=== PATIENT | male | born 1945 | race Caucasian/White ===

== ENCOUNTER 2018-12-19 09:39 | Observation (INO) | payer MEDICARE ==
[2018-12-19] MEDS ORDERED: IPRATROPIUM-ALBUTEROL 3 ML NEB INHALATION STA ×2 (10:09→11:13)
[2018-12-19] MEDS ORDERED: methylPREDNISolone SOD SUCCI 125 MG/2 ML VIAL IV STA (10:10)
--- NOTE | 2018-12-19 10:51 | XR ---
EXAMINATION TYPE: XR chest 2V DATE OF EXAM: 12/19/2018 HISTORY: Pain. REFERENCE: NONE. FINDINGS: There has been a previous left shoulder arthroplasty as well as rotator cuff repair on the right. Lung volumes are prominent. The lungs are clear. Pleural spaces are clear. Heart size is within yoana l limits. IMPRESSION: 1. NO ACUTE INTRATHORACIC ABNORMALITY. 2. POSTOPERATIVE CHANGE.
[2018-12-19 10:54] LABS: Basophils % (A) 1 %; Eosinophils # (A) 0.1 k/uL (0-0.7); Eosinophils % (A) 1 %; HCT 41.5 % (39.0-53.0); HGB 13.3 gm/dL (13.0-17.5); Lymphocytes # (A) 2.3 k/uL (1.0-4.8); Lymphocytes % (A) 32 %; MCH 28.4 pg (25.0-35.0); MCV 88.8 fL (80.0-100.0); Mean Platelet Volume 7.6; Monocytes # (A) 0.3 k/uL (0-1.0); Monocytes % (A) 5 %; Neutrophils # (A) 4.3 k/uL (1.3-7.7); Neutrophils % (A) 60 %; Platelet Count 182 k/uL (150-450); RBC 4.68 m/uL (4.30-5.90); RDW 13.9 % (11.5-15.5); WBC 7.2 k/uL (3.8-10.6)
[2018-12-19 11:11] LABS: ALT 55 U/L (21-72); AST 55 U/L (17-59); Albumin 3.8 g/dL (3.5-5.0); Alkaline Phosphatase 117 U/L (38-126); Anion Gap 8 mmol/L; Blood Urea Nitrogen 17 mg/dL (9-20); Calcium 9.4 mg/dL (8.4-10.2); Carbon Dioxide 25 mmol/L (22-30); Chloride 104 mmol/L (98-107); Glucose 253 mg/dL (74-99); Potassium 4.2 mmol/L (3.5-5.1); Sodium 137 mmol/L (137-145); Total Bilirubin 0.6 mg/dL (0.2-1.3); Total Protein 6.5 g/dL (6.3-8.2)
[2018-12-19] MEDS ORDERED: AZITHROMYCIN 500 MG in SODIUM CHLORIDE 0.9% 250 ML IVPB STA (11:13)
--- NOTE | 2018-12-19 11:40 | ED ---
URI HPI - General Source: patient Mode of arrival: ambulatory Limitations: no limitations <Celina Alvarado - Last Filed: 12/19/18 12:40> <Kyler Chua - Last Filed: 12/19/18 13:26> - General Chief Complaint: Upper Respiratory Infection Stated Complaint: cough, SOB Time Seen by Provider: 12/19/18 09:51 - History of Present Illness Initial Comments: 73-year-old male presenting today for chief complaint of "upper respiratory infection that turned into bronchitis" pt states that he had 2 years ago identical symptoms, he was admitted to the hospital for breathing treatments. Pt states for the past 2-3 weeks he has had cough with some sputum production, he states he feels like his chest is congested and has some shortness of breath. He denies chest pain. He states that on Thursday he presented to [facility] where he had a "full heart work up" he states that this is not what he wanted he states it is not chest pain he states that this is an infection. Pt denies hemoptysis, leg swelling, epigastric or abdominal pain, upper back pain, pleuritic chest pain, recent surgery, hx of DVT, hx of cancer. Upon arrival pt does not appear in distress however audible expiratory wheeze. (Celina Alvarado) - Related Data Allergies Allergy/AdvReac Type Severity Reaction Status Date / Time Iodinated Contrast- Oral and Allergy Unknown Verified 12/19/18 09:49 IV Dye Review of Systems ROS Other: All systems not noted in ROS Statement are negative. <Celina Alvarado - Last Filed: 12/19/18 12:40> ROS Other: All systems not noted in ROS Statement are negative. <Kyler Chua - Last Filed: 12/19/18 13:26> ROS Statement: Those systems with pertinent positive or pertinent negative responses have been documented in the HPI. Past Medical History Past Medical History: Diabetes Mellitus, Hyperlipidemia, Myocardial Infarction ([place]) History of Any Multi-Drug Resistant Organisms: None Reported Past Surgical History: Cholecystectomy, Heart Catheterization With Stent Past Psychological History: No Psychological Hx Reported Smoking Status: Former smoker Past Alcohol Use History: None Reported Past Drug Use History: None Reported <Celina Alvarado - Last Filed: 12/19/18 12:40> General Exam Limitations: no limitations <Celina Alvarado - Last Filed: 12/19/18 12:40> - General Exam Comments Initial Comments: General: The patient is awake and alert, in no distress, and does not appear acutely ill. Eye: +3 mm pupils are equal, round and reactive to light, extra-ocular movements are intact. No nystagmus. There is normal conjunctiva bilaterally. No signs of icterus. No photophobia Ears, nose, mouth and throat: There are moist mucous membranes and no oral lesions. Oropharynx was not erythematous there is no tonsillar enlargement exu dates or lesions. Uvula midline. Tympanic membranes are not erythematous or is no effusions bulging or retraction. No tenderness to palpation of the mastoid. No anterior cervical lymphadenopathy. Rhinorrhea, clear and bilateral nares. No tripoding, no drooling. Neck: The neck is supple, there is no tenderness or JVD. No nuchal rigidity negative Brudzinski and Kernig Cardiovascular: There is a regular rate and rhythm. No murmur, rub or gallop is appreciated. Respiratory: Respirations are non-labored, breath sounds are equal. No stridor, rales. Significant expiratory wheeze in all rojo, rhonchi. No retractions or abdominal breathing. Gastrointestinal: Soft, non-distended, non-tender abdomen without masses or organomegaly noted. There is no rebound or guarding present. Bowel sounds are unremarkable. Musculoskeletal: Normal ROM, no tenderness. Strength 5/5. Sensation intact. Radial pulses equal bilaterally 2+. Neurological: A&O x 3. CN II-XII intact, There are no obvious motor or sensory deficits. Coordination appears grossly intact. Speech appears normal, no muffling. Skin: Skin is warm and dry and no rashes or lesions are noted. No extremity edema Psychiatric: Cooperative (Celina Alvarado) Course Vital Signs 12/19/18 12/19/18 12/19/18 09:44 10:03 10:22 Temperature 98.5 F Pulse Rate 70 72 Respiratory 18 18 Rate Blood Pressure 143/75 O2 Sat by Pulse 95 Oximetry 12/19/18 12/19/18 12/19/18 10:30 12:06 12:15 Temperature Pulse Rate 76 70 76 Respiratory Rate Blood Pressure O2 Sat by Pulse Oximetry Medical Decision Making - Lab Data Result diagrams: 12/19/18 10:32 12/19/18 10:32 <Celina Alvarado - Last Filed: 12/19/18 12:40> - Lab Data Result diagrams: 12/19/18 10:32 12/19/18 10:32 <Kyler Chua - Last Filed: 12/19/18 13:26> - Medical Decision Making 73-year-old male with history of "chronic bronchitis" previous every day smoker presenting today for chief complaint of cough, shortness of breath 3 weeks. Patient states he has had upper respiratory symptoms he feels as though it settled in his chest. He states he is at times short of breath. Patient has significant expiratory wheeze on examination as well as audible rhonchi. No rales are audible consolidations. Chest x-ray revealed no acute abnormality. No effusion. Patient is no lower extremity swelling. Patient does a chest pain. He refuses cardiac w/u stating he had one two days prior and was frustrated because he doesnt have chest pain "like that". Upon arrival pt is 95% on RA. Pt was given 2 duoneb treatments he had some relief after the second but lungs do no appear at all improved from initial exam, significant expiratory wheezes and rhonchi. At this time I feel pt should be admitted for repetitive treatments, IV steroids. Pt was given a dose of azithromycin in ER he does deny fever, no leukocytosis. I discussed case with attending provider Dr. Chua. Who is agreeable with admission. He spoke with admitting provider Dr. Herman who will treat patient further. (Celina Alvarado) Patient reevaluated and reexamined by myself, Dr. Chua. Patient resting comfortably in bed. Lung sounds with continued significant wheezing. Patient and family updated on results and plan. Case was discussed in detail with Dr. Herman covering for hospital call, who will admit. I do agree with PA Findings. This includes diagnostic interpretation treatment plan. (Kyler Chua) - Lab Data Lab Results 12/19/18 12/19/18 12/19/18 Range/Units 10:32 10:32 10:32 WBC 7.2 (3.8-10.6) k/uL RBC 4.68 (4.30-5.90) m/uL Hgb 13.3 (13.0-17.5) gm/dL Hct 41.5 (39.0-53.0) % MCV 88.8 (80.0-100.0) fL MCH 28.4 (25.0-35.0) pg MCHC 32.0 (31.0-37.0) g/dL RDW 13.9 (11.5-15.5) % Plt Count 182 (150-450) k/uL Neutrophils % 60 % Lymphocytes % 32 % Monocytes % 5 % Eosinophils % 1 % Basophils % 1 % Neutrophils # 4.3 (1.3-7.7) k/uL Lymphocytes # 2.3 (1.0-4.8) k/uL Monocytes # 0.3 (0-1.0) k/uL Eosinophils # 0.1 (0-0.7) k/uL Basophils # 0.0 (0-0.2) k/uL Sodium 137 (137-145) mmol/L Potassium 4.2 (3.5-5.1) mmol/L Chloride 104 (98-107) mmol/L Carbon Dioxide 25 (22-30) mmol/L Anion Gap 8 mmol/L BUN 17 (9-20) mg/dL Creatinine 0.83 (0.66-1.25) mg/dL Est GFR (CKD-EPI)AfAm >90 (>60 ml/min/1.73 sqM) Est GFR (CKD-EPI)NonAf 87 (>60 ml/min/1.73 sqM) Glucose 253 H (74-99) mg/dL Calcium 9.4 (8.4-10.2) mg/dL Total Bilirubin 0.6 (0.2-1.3) mg/dL AST 55 (17-59) U/L ALT 55 (21-72) U/L Alkaline Phosphatase 117 (38-126) U/L Troponin I <0.012 (0.000-0.034) ng/mL NT-Pro-B Natriuret Pep pg/mL Total Protein 6.5 (6.3-8.2) g/dL Albumin 3.8 (3.5-5.0) g/dL 12/19/18 Range/Units 10:32 WBC (3.8-10.6) k/uL RBC (4.30-5.90) m/uL Hgb (13.0-17.5) gm/dL Hct (39.0-53.0) % MCV (80.0-100.0) fL MCH (25.0-35.0) pg MCHC (31.0-37.0) g/dL RDW (11.5-15.5) % Plt Count (150-450) k/uL Neutrophils % % Lymphocytes % % Monocytes % % Eosinophils % % Basophils % % Neutrophils # (1.3-7.7) k/uL Lymphocytes # (1.0-4.8) k/uL Monocytes # (0-1.0) k/uL Eosinophils # (0-0.7) k/uL Basophils # (0-0.2) k/uL Sodium (137-145) mmol/L Potassium (3.5-5.1) mmol/L Chloride (98-107) mmol/L Carbon Dioxide (22-30) mmol/L Anion Gap mmol/L BUN (9-20) mg/dL Creatinine (0.66-1.25) mg/dL Est GFR (CKD-EPI)AfAm (>60 ml/min/1.73 sqM) Est GFR (CKD-EPI)NonAf (>60 ml/min/1.73 sqM) Glucose (74-99) mg/dL Calcium (8.4-10.2) mg/dL Total Bilirubin (0.2-1.3) mg/dL AST (17-59) U/L ALT (21-72) U/L Alkaline Phosphatase (38-126) U/L Troponin I (0.000-0.034) ng/mL NT-Pro-B Natriuret Pep 87 pg/mL Total Protein (6.3-8.2) g/dL Albumin (3.5-5.0) g/dL Disposition Is patient prescribed a controlled substance at d/c from ED?: No Time of Disposition: 12:46 Decision to Admit Reason: Admit from EC Decision Date: 12/19/18 Decision Time: 12:46 <Celina Alvarado - Last Filed: 12/19/18 12:40> <Kyler Chua - Last Filed: 12/19/18 13:26> Clinical Impression: COPD exacerbation, Shortness of breath, Cough Disposition: ADMITTED IP TO THIS HOSP Condition: Stable Referrals: Cichowlas,Gary, DO [Primary Care Provider] - 1-2 days
[2018-12-19] MEDS ORDERED: IPRATROPIUM-ALBUTEROL 3 ML NEB INHALATION PRN (12:47)
[2018-12-19 14:55] VITALS: BMI 31.1
[2018-12-19] MEDS: IPRATROPIUM-ALBUTEROL 3 ML NEB INHALATION SCH ×3 (16:52→20:59)
[2018-12-19 16:57] LABS: Glucose,Whole Blood 310 mg/dL (75-99)
[2018-12-19] MEDS: INSULIN ASPART (NovoLOG) 100 UNIT/ML VIAL SQ SCH ×2 (16:58→21:19)
--- NOTE | 2018-12-19 17:03 | P.HPIM ---
History of Present Illness 73-year-old pleasant gentleman with history of smoking quit 4 years ago came in with comments of shortness of breath was wheezing was coughing all night. Patient was dealing with upper respiratory infection for about a month. Patient denied any fever chills patient doesn't have pneumonia on chest x-ray patient appears to have bronchitis rhonchus breath sounds. Patient denied any hemoptysis dysuria. Patient is unable leukocytosis patient has is diabetic with highly elevated blood sugars is on his dose of insulin. Patient doesn't use any oxygen at home patient is comparing of cough unable to bring up anything Review of Systems REVIEW OF SYSTEMS: CONSTITUTIONAL: No fever, no malaise, no fatigue. HEENT: No recent visual problems or hearing problems. Denied any sore throat. CARDIOVASCULAR: No chest pain, orthopnea, PND, no palpitations, no syncope. PULMONARY: no hemoptysis. GASTROINTESTINAL: No diarrhea, no nausea, no vomiting, no abdominal pain. NEUROLOGICAL: No headaches, no weakness, no numbness. HEMATOLOGICAL: Denies any bleeding or petechiae. GENITOURINARY: Denies any burning micturition, frequency, or urgency. MUSCULOSKELETAL/RHEUMATOLOGICAL: Denies any joint pain, swelling, or any muscle pain. ENDOCRINE: Denies any polyuria or polydipsia. The rest of the 14-point review of systems is negative. Past Medical History Past Medical History: Diabetes Mellitus, Hyperlipidemia, Myocardial Infarction ([place]) Last Myocardial Infarction Date:: 2011 History of Any Multi-Drug Resistant Organisms: None Reported Past Surgical History: Back Surgery, Cholecystectomy, Heart Catheterization With Stent, Joint Replacement Additional Past Surgical History / Comment(s): AAA with sleeve, TLS, Past Anesthesia/Blood Transfusion Reactions: No Reported Reaction Date of Last Stent Placement:: 2011 Past Psychological History: No Psychological Hx Reported Smoking Status: Former smoker Past Alcohol Use History: None Reported Past Drug Use History: None Reported - Past Family History Mother Family Medical History: Diabetes Mellitus Father Family Medical History: Coronary Artery Disease (CAD) Medications and Allergies Home Medications Medication Instructions Recorded Confirmed Type Aspirin EC [Ecotrin Low Dose] 81 mg PO DAILY 12/19/18 12/19/18 History Escitalopram Oxalate [Lexapro] 10 mg PO DAILY 12/19/18 12/19/18 History Ezetimibe [Zetia] 10 mg PO HS 12/19/18 12/19/18 History Fluticasone Nasal [place] [Flonase 1 spray EA NOSTRIL DAILY 12/19/18 12/19/18 History Nasal [place]] INSULIN LISPRO (humaLOG) [humaLOG] 13 units SQ W/LUNCH 12/19/18 12/19/18 History INSULIN LISPRO (humaLOG) [humaLOG] 16 units SQ W/BRKFST 12/19/18 12/19/18 Hist ory INSULIN LISPRO (humaLOG) [humaLOG] 40 units SQ W/SUPPER 12/19/18 12/19/18 History Insulin Glargine,Hum.rec.anlog 110 units SQ HS 12/19/18 12/19/18 History [[place] Solostar] Montelukast [Singulair] 10 mg PO HS 12/19/18 12/19/18 History Multivitamins, Thera [Multivitamin 1 tab PO DAILY 12/19/18 12/19/18 History (formulary)] Nadolol [Corgard] 20 mg PO DAILY 12/19/18 12/19/18 History [place]-3 Acid Ethyl Esters [Lovaza] 2 gm PO BID 12/19/18 12/19/18 History Allergies Allergy/AdvReac Type Severity Reaction Status Date / Time Iodinated Contrast- Oral and Allergy Unknown Verified 12/19/18 13:52 IV Dye Physical Exam Vitals: Vital Signs Temp Pulse Pulse Resp BP BP Pulse Ox 12/19/18 14:46 97.6 F 75 12 150/79 95 12/19/18 13:26 74 18 131/79 94 L 12/19/18 12:15 76 12/19/18 12:06 70 12/19/18 10:30 76 12/19/18 10:22 72 12/19/18 10:03 18 12/19/18 09:44 98.5 F 70 18 143/75 95 Intake and Output 12/19/18 12/19/18 12/19/18 06:59 14:59 22:59 Other: Voiding Method Toilet # Voids 0 Weight 92.986 kg PHYSICAL EXAMINATION: GENERAL: The patient is alert and oriented x3, not in any acute distress. Well developed, well nourished. HEENT: Pupils are round and equally reacting to light. EOMI. No scleral icterus. No conjunctival pallor. Normocephalic, atraumatic. No pharyngeal erythema. No thyromegaly. CARDIOVASCULAR: S1 and S2 present. No murmurs, rubs, or gallops. PULMONARY: Rhonchus breath sounds with minimal expiratory wheezing and decreased air entry bilateral lung rojo ABDOMEN: Soft, nontender, nondistended, normoactive bowel sounds. No palpable organomegaly. MUSCULOSKELETAL: No joint swelling or deformity. EXTREMITIES: No cyanosis, clubbing, or pedal edema. NEUROLOGICAL: Gross neurological examination did not reveal any focal deficits. SKIN: No rashes. Results CBC & Chem 7: 12/19/18 10:32 12/19/18 10:32 Labs: Abnormal Lab Results - Last 24 Hours (Table) 12/19/18 12/19/18 Range/Units 10:32 16:34 Glucose 253 H (74-99) mg/dL POC Glucose (mg/dL) 310 H (75-99) mg/dL Thrombosis Risk Factor Assmnt - Choose All That Apply Each Risk Factor Represents 2 Points: Age 61-74 years Thrombosis Risk Factor Assessment Total Risk Factor Score: 2 Thrombosis Risk Factor Assessment Level: Low Risk Assessment and Plan Plan: -COPD exacerbation: Patient is on oral steroids will be continued inhalational treatments will be continued. Patient has tracheobronchitis considering his lung exam patient may will benefit from antibiotics patient was started on the oxygen. -Type 2 diabetes mellitus patient will be resumed on his home regimen His blood sugars are expected to go up patient will be covered with sliding scale insulin for that -Hyperlipidemia Due to prophylaxis early ambulation patient will need for GI prophylaxis due to systemic steroids
[2018-12-19] MEDS ORDERED: INSULIN ASPART (NovoLOG) 100 UNIT/ML VIAL SQ SCH ×2 (17:30)
[2018-12-19] MEDS ORDERED: EZETIMIBE 10 MG TAB PO SCH (21:00)
[2018-12-19] MEDS ORDERED: INSULIN DETEMIR (LEVEMIR) 100 UNIT/ML SYR SQ SCH ×2 (21:00)
[2018-12-19 21:09] LABS: Glucose,Whole Blood 339 mg/dL (75-99)
[2018-12-19] MEDS: FAMOTIDINE 20 MG TAB PO SCH (21:20)
[2018-12-19] MEDS: guaiFENesin 600 MG TABLET.ER PO SCH (21:20)
[2018-12-19] MEDS: DOXYCYCLINE 100 MG CAP PO SCH (22:20)
[2018-12-20] MEDS ORDERED: MELATONIN 3 MG TABLET PO PRN (01:03)
[2018-12-20 06:59] LABS: Glucose,Whole Blood 202 mg/dL (75-99)
[2018-12-20] MEDS: INSULIN ASPART (NovoLOG) 100 UNIT/ML VIAL SQ SCH ×2 (07:26→12:29)
[2018-12-20] MEDS: FAMOTIDINE 20 MG TAB PO SCH (07:27)
[2018-12-20] MEDS: DOXYCYCLINE 100 MG CAP PO SCH (07:27)
[2018-12-20] MEDS: guaiFENesin 600 MG TABLET.ER PO SCH (07:27)
[2018-12-20] MEDS ORDERED: INSULIN ASPART (NovoLOG) 100 UNIT/ML VIAL SQ SCH ×4 (07:30→12:30)
[2018-12-20] MEDS: IPRATROPIUM-ALBUTEROL 3 ML NEB INHALATION SCH ×2 (07:44→11:30)
[2018-12-20 08:43] VITALS: BP 172/83; RESP 16; TEMP 98.1
[2018-12-20] MEDS ORDERED: ASPIRIN 81 MG PO SCH (09:00)
[2018-12-20] MEDS ORDERED: NADOLOL 20 MG TAB PO SCH (09:00)
[2018-12-20] MEDS ORDERED: ESCITALOPRAM 10 MG TAB PO SCH (09:00)
[2018-12-20] MEDS ORDERED: predniSONE 20 MG TAB PO SCH (09:00)
[2018-12-20 11:37] VITALS: PULSE 76
[2018-12-20 12:07] LABS: Glucose,Whole Blood 179 mg/dL (75-99)
[2018-12-20] MEDS: FLUTICASONE 50MCG/SPRAY NASAL 16GM EA NOSTRIL SCH (12:29)
--- NOTE | 2018-12-20 12:42 | P.DS ---
Providers Date of admission: 12/19/18 13:27 Attending physician: Charli Herman Primary care physician: Gary [facility] Course: 73-year-old pleasant gentleman with history of smoking quit 4 years ago came in with comments of shortness of breath was wheezing was coughing all night. Patient was dealing with upper respiratory infection for about a month. Patient denied any fever chills patient doesn't have pneumonia on chest x-ray patient appears to have bronchitis rhonchus breath sounds. Patient denied any hemoptysis dysuria. Patient is unable leukocytosis patient has is diabetic with highly elevated blood sugars is on his dose of insulin. Patient doesn't use any oxygen at home patient is comparing of cough unable to bring up anything. 12/20/2018 Patient was treated for several exacerbation and upon ablation and patient saturates at patient will be discharged on weaning dose of steroids and antibiotics for bronchitis. PHYSICAL EXAMINATION: GENERAL: The patient is alert and oriented x3, not in any acute distress. Well developed, well nourished. HEENT: Pupils are round and equally reacting to light. EOMI. No scleral icterus. No conjunctival pallor. Normocephalic, atraumatic. No pharyngeal erythema. No thyromegaly. CARDIOVASCULAR: S1 and S2 present. No murmurs, rubs, or gallops. PULMONARY: Rhonchus breath sounds with minimal expiratory wheezing and decreased air entry bilateral lung rojo ABDOMEN: Soft, nontender, nondistended, normoactive bowel sounds. No palpable organomegaly. MUSCULOSKELETAL: No joint swelling or deformity. EXTREMITIES: No cyanosis, clubbing, or pedal edema. NEUROLOGICAL: Gross neurological examination did not reveal any focal deficits. SKIN: No rashes. Assessment and Plan Plan: -COPD exacerbation: -Type 2 diabetes mellitus -Hyperlipidemia Patient Condition at Discharge: Stable Plan - Discharge Summary Discharge Rx Participant: Yes New Discharge Prescriptions: New Doxycycline Monohydrate [Monodox] 100 mg PO BID 3 Days #6 cap predniSONE 10 mg PO DAILY #30 tab Tiotropium [place] [Spiriva] 1 cap INHALATION DAILY #1 device Budesonide-Formot 160-4.5 Mcg [Symbicort 160-4.5 Mcg Inhaler] 2 puff INHALATION BID #1 inhaler Albuterol Inhaler [Ventolin Hfa Inhaler] 1 - 2 puff INHALATION Q6HR PRN #1 inhaler PRN Reason: Shortness Of Breath Or Wheezing Omeprazole [PriLOSEC] 40 mg PO -KFST #14 capsule. INSULIN LISPRO (humaLOG) [humaLOG] 1 injection SQ DIRECTED #10 ml No Action INSULIN LISPRO (humaLOG) [humaLOG] 28 units SQ W/SUPPER Ezetimibe [Zetia] 10 mg PO HS Insulin Glargine,Hum.rec.anlog [Miryam Sauceda] 90 units SQ HS INSULIN LISPRO (humaLOG) [humaLOG] 15 units SQ W/LUNCH INSULIN LISPRO (humaLOG) [humaLOG] 22 units SQ W/BRKFST [place]-3 Acid Ethyl Esters [Lovaza] 2 gm PO BID Nadolol [Corgard] 20 mg PO DAILY Multivitamins, Thera [Multivitamin (formulary)] 1 tab PO DAILY Fluticasone Nasal [place] [Flonase Nasal [place]] 1 spray EA NOSTRIL DAILY Escitalopram Oxalate [Lexapro] 10 mg PO DAILY Montelukast [Singulair] 10 mg PO HS Aspirin EC [Ecotrin Low Dose] 81 mg PO DAILY Discharge Medication List Aspirin EC [Ecotrin Low Dose] 81 mg PO DAILY 12/19/18 [History] Escitalopram Oxalate [Lexapro] 10 mg PO DAILY 12/19/18 [History] Ezetimibe [Zetia] 10 mg PO HS 12/19/18 [History] Fluticasone Nasal [place] [Flonase Nasal [place]] 1 spray EA NOSTRIL DAILY 12/19/18 [History] INSULIN LISPRO (humaLOG) [humaLOG] 15 units SQ W/LUNCH 12/19/18 [History] INSULIN LISPRO (humaLOG) [humaLOG] 22 units SQ W/BRKFST 12/19/18 [History] INSULIN LISPRO (humaLOG) [humaLOG] 28 units SQ W/SUPPER 12/19/18 [History] Insulin Glargine,Hum.rec.anlog [Miryam [place]] 90 units SQ HS 12/19/18 [History] Montelukast [Singulair] 10 mg PO HS 12/19/18 [History] Multivitamins, Thera [Multivitamin (formulary)] 1 tab PO DAILY 12/19/18 [History] Nadolol [Corgard] 20 mg PO DAILY 12/19/18 [History] [place]-3 Acid Ethyl Esters [Lovaza] 2 gm PO BID 12/19/18 [History] Albuterol Inhaler [Ventolin Hfa Inhaler] 1 - 2 puff INHALATION Q6HR PRN #1 inhaler 12/20/18 [Rx] Budesonide-Formot 160-4.5 Mcg [Symbicort 160-4.5 Mcg Inhaler] 2 puff INHALATION BID #1 inhaler 12/20/18 [Rx] Doxycycline Monohydrate [Monodox] 100 mg PO BID 3 Days #6 cap 12/20/18 [Rx] INSULIN LISPRO (humaLOG) [humaLOG] 1 injection SQ DIRECTED #10 ml 12/20/18 [Rx] Omeprazole [PriLOSEC] 40 mg PO AC-BRKFST #14 capsule. 12/20/18 [Rx] Tiotropium [place] [Spiriva] 1 cap INHALATION DAILY #1 device 12/20/18 [Rx] predniSONE 10 mg PO DAILY #30 tab 12/20/18 [Rx] Follow up Appointment(s)/Referral(s): Gary Hawk DO [Primary Care Provider] - 12/24/18 11:45 am Patient Instructions/Handouts: COPD (Chronic Obstructive Pulmonary Disease) (DC) Discharge Disposition: HOME SELF-CARE
== END 2018-12-20 13:30 | disposition home or self-care (01) ==
LOC: EC 09:39 → 4SSUR 13:27
PROVIDERS: ADMIT Internal Medicine; ATTEND Internal Medicine
DX: J44.1 Chronic obstructive pulmonary disease with (acute) exacerbation (principal); J06.9 Acute upper respiratory infection, unspecified; E78.5 Hyperlipidemia, unspecified; E11.65 Type 2 diabetes mellitus with hyperglycemia; Z91.041 Radiographic dye allergy status; I25.2 Old myocardial infarction; Z95.5 Presence of coronary angioplasty implant and graft; Z87.891 Personal history of nicotine dependence; Z90.49 Acquired absence of other specified parts of digestive tract; Z79.82 Long term (current) use of aspirin; Z79.899 Other long term (current) drug therapy; Z79.4 Long term (current) use of insulin; Z82.49 Family history of ischemic heart disease and other diseases of the circulatory system; Z83.3 Family history of diabetes mellitus
CPT/HCPCS: 96365; 96375; 99284; 36415; 94640 ×4; 83880; 80053; 84484; 85025; 71046; G0378 ×2; J2930; J0456; J7512; 99285